=== PATIENT | female | born 1960 | race Hispanic/Latino ===

== ENCOUNTER 2016-06-29 22:00 | Emergency (ER) | payer OTHER ==
[2016-06-29 22:37] LABS: AMYLASE 125 IU/L (1-118); CHLORIDE 112 mEq/L (99-109); HEMATOCRIT 30.3 % (36.0-46.0); MCH 19.1 PG (29.0-34.0); MCHC 32.3 G/DL (30.0-36.0); MCV 59.1 FL (83-99); POTASSIUM 3.8 mEq/L (3.7-5.4); RBC DIS.WIDTH-CV 17.9 % (11.8-14.6); RBC DIS.WIDTH-SD 35.1 % (39-53); RED BLOOD COUNT 5.13 M/uL (3.80-5.20); SODIUM 141 mEq/L (136-147); WHITE BLOOD COUNT 12.8 K/uL (4.1-10.2)
[2016-06-29 22:39] LABS: GLUCOSE 159 mg/dL (70-99)
[2016-06-29 22:41] LABS: ANION GAP 8 MEQ/L (2-14)
[2016-06-29 22:42] LABS: SERUM ETHYL ALCOHOL < 10 mg/dL
[2016-06-29 22:43] LABS: GFR ESTIMATE (CALCULATED) > 59 mL/min/
[2016-06-29 22:44] LABS: UREA NITROGEN (BUN) 16 mg/dL (9-23)
[2016-06-29 22:46] LABS: LIPASE 44 U/L (1.0-51.0)
[2016-06-29 22:53] LABS: QUANTITATIVE HCG < 4.0 MIU/ML
[2016-06-29 23:19] LABS: EOSINOPHIL (%) 1.2 % (0-5); EOSINOPHIL COUNT 0.2 K/uL (0-0.3); IMMATURE GRANULOCYTE (%) 0.7 % (0.0-0.7); IMMATURE GRANULOCYTE COUNT 0.9 K/uL; LYMPHOCYTE COUNT 3.2 K/uL (1.0-2.8); MONOCYTE COUNT 0.4 K/uL (0-0.8); NEUTROPHIL (%) 69.8 % (45-76); NEUTROPHIL COUNT 8.9 K/uL (1.8-6.4); PLATELET COUNT UNABLE TO REPORT K/uL (156-360)
[2016-06-30] MEDS ORDERED: MOTRIN600 MG PO (00:44)
[2016-06-30] MEDS ORDERED: SKELAXIN800 MG PO (00:44)
== END 2016-06-30 02:18 | disposition home or self-care (01) ==
LOC: TRA 22:00 → EME 22:00 → TRA 06-30 02:18
PROVIDERS: Emergency Medicine
DX: R10.30 Lower abdominal pain, unspecified (principal); S93.401A Sprain of unspecified ligament of right ankle, initial encounter; V49.40XA Driver injured in collision with unspecified motor vehicles in traffic accident, initial encounter
CPT/HCPCS: 70450; 71010; 72125; 73600; 74177; 80048; 81003; 82150; 83690; 84702; 85025; 86850; 86900; 86901; 93005; G0480; J2270; J2405